=== PATIENT | female | born 1980 | race Asian ===

== ENCOUNTER 2016-11-01 20:27 | Emergency (ER) | payer BC ==
[~2016-11-01] VITALS: Ht 170.2 cm; Wt 77.1 kg
[2016-11-01 22:26] LABS: PLATELET COUNT 363 K/uL (152-353)
[2016-11-01 22:39] LABS: POTASSIUM 4.4 mmol/L (3.6-5.2); SODIUM 134 mmol/L (136-145)
[2016-11-02 02:35] VITALS: BP 109/65; TEMP 99.3
== END 2016-11-02 02:35 | disposition home or self-care (01) ==
LOC: ED 20:27
PROVIDERS: Specialist
DX: F41.0 Panic disorder [episodic paroxysmal anxiety] (principal); F43.20 Adjustment disorder, unspecified; R00.0 Tachycardia, unspecified
CPT/HCPCS: 36600; 80053; 82550; 82553; 82805; 83735; 84100; 84484; 85027; 85379; 93005; 96372; 96374; 96375; 99284; J1170; J2060; J2405; Q9963

== ENCOUNTER 2021-01-04 14:11 | Outpatient (CLI) | payer BC | END 2021-01-04 22:14 | disposition home or self-care (01) | LOC: MAMMO 14:11 | PROVIDERS: ATTEND Family Medicine | DX: Z12.31 Encounter for screening mammogram for malignant neoplasm of breast (principal) ==

== ENCOUNTER 2021-09-27 14:44 | Outpatient (CLI) | payer BC | END 2021-09-27 18:58 | disposition home or self-care (01) | LOC: RAD 14:44 | PROVIDERS: ATTEND Nurse Practitioner Primary Care | DX: M54.59 Other low back pain (principal) ==

== ENCOUNTER 2021-10-10 15:27 | Outpatient (CLI) | payer BC ==
[2021-10-10 15:58] LABS: PLATELET COUNT 349 K/uL (152-353)
== END 2021-10-10 19:48 | disposition home or self-care (01) ==
LOC: LABW 15:27
PROVIDERS: ATTEND Nurse Practitioner Primary Care
DX: D50.9 Iron deficiency anemia, unspecified (principal)
CPT/HCPCS: 36415; 85027

== ENCOUNTER 2022-01-11 13:48 | Outpatient (CLI) | payer BC | END 2022-01-11 19:57 | disposition home or self-care (01) | LOC: MAMMO 13:48 | PROVIDERS: ATTEND Nurse Practitioner Family | DX: Z12.31 Encounter for screening mammogram for malignant neoplasm of breast (principal) ==

== ENCOUNTER 2022-06-27 15:06 | Outpatient (CLI) | payer BC | END 2022-06-27 21:05 | disposition home or self-care (01) | LOC: US 15:06 | PROVIDERS: ATTEND Otolaryngology | DX: E04.2 Nontoxic multinodular goiter (principal) ==

== ENCOUNTER 2023-01-14 07:54 | Outpatient (CLI) | payer BC | END 2023-01-14 19:17 | disposition home or self-care (01) | LOC: MAMMO 07:54 | PROVIDERS: ATTEND Nurse Practitioner Primary Care | DX: Z12.31 Encounter for screening mammogram for malignant neoplasm of breast (principal) ==